=== PATIENT | female | born 1955 | race Hispanic/Latino ===

== ENCOUNTER 2018-11-20 06:25 | Day surgery (SDC) | payer OTHER ==
[~2018-11-20] VITALS: Ht 167.6 cm; Wt 93.0 kg
[~2018-11-20 06:25] MED LIST: ESOM40CA54 PO; SODIUM CHLORIDE 0.9% 1000ML 1,000 ML IV ONE
[2018-11-20 08:13] VITALS: BP 132/69
[2018-11-20] MEDS ORDERED: DICY20TA11 PO (08:24)
[2018-11-20] MEDS ORDERED: CHOL400C9 PO (08:24)
[2018-11-20] MEDS ORDERED: LORA10CA9 PO (08:24)
[2018-11-20] MEDS ORDERED: ROSU10TA27 PO (08:24)
[2018-11-20] MEDS ORDERED: CYAN-35 PO (08:24)
[2018-11-20] MEDS ORDERED: PROPOFOL 10 MG/ML 20ML VIAL IV ONE (09:26)
[2018-11-20 09:36] VITALS: BP 96/47
[2018-11-20 09:40] VITALS: BP 100/46
[2018-11-20 09:45] VITALS: BP 102/46
[2018-11-20 09:51] VITALS: BP 105/54
== END 2018-11-20 10:00 | disposition home or self-care (01) ==
LOC: DAH 06:25 → ENDO 06:25
PROVIDERS: ATTEND Internal Medicine
DX: K44.9 Diaphragmatic hernia without obstruction or gangrene (principal); K31.89 Other diseases of stomach and duodenum; Z68.33 Body mass index [BMI] 33.0-33.9, adult; Z79.899 Other long term (current) drug therapy; Z98.890 Other specified postprocedural states; K59.04 Chronic idiopathic constipation; E78.2 Mixed hyperlipidemia; E66.9 Obesity, unspecified
CPT/HCPCS: 43239; A4606; J2704; J7030